=== PATIENT | male | born 1985 | race Caucasian/White ===

== ENCOUNTER 2019-03-26 16:40 | Emergency (ER) | payer SELFPAY ==
[2019-03-26] MEDS ORDERED: Sodium Chloride 0.9% 1,000 ML IV ONE (17:41)
[2019-03-26] MEDS ORDERED: Sodium Chloride 0.9% 10 ML Syringe FLUSH PRN (17:41)
--- NOTE | 2019-03-26 18:32 | EDM.PDOCBH ---
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 Patient last shot up at 1400 hrs. today. Again he's been doing that for the past 4 years and has lost approximately 60 pounds in total. He has never withdrawn from methamphetamines or heroin. Nor has the patient ever undergone treatment for heroin or methamphetamine abuse. He denies any other recreational drugs. Denies any alcohol use. He states for the past year and a half with ambulation he does get short of breath at times and notes no chest pain with this. Denies any fever, cough, hemoptysis, nausea vomiting, abdominal pain, pain or swelling to his lower extremities, or history of DVT/PE. States he just recently returned from [place] visiting his family which prompted treatment. - Related Data Allergies Allergy/AdvReac Type Severity Reaction Status Date / Time codeine Allergy Rash Verified 03/26/19 17:13 Home Meds: Home Meds . [No Known Home Meds] 03/26/19 [History] Past Medical History - Past Health History Medical/Surgical History: Denies Medical/Surgical History Social & Family History - Tobacco Use Smoking Status *Q: Current Every Day Smoker Years of Tobacco use: 15 Packs/Tins Daily: 0.5 - Recreational Drug Use Recreational Drug Use: Yes Drug Use in Last 12 Months: Yes Recreational Drug Type: Reports: Heroin, Methamphetamine Recreational Drug Use Frequency: Daily ED ROS GENERAL - Review of Systems Review Of Systems: See Below Constitutional: Reports: Decreased Appetite, Weight Loss Respiratory: Reports: Shortness of Breath. Denies: Pleuritic Chest Pain, Cough , Sputum, Hemoptysis Cardiovascular: Reports: Dyspnea on Exertion. Denies: Orthopnea, Palpitations, PND, Syncope GI/Abdominal: Reports: No Symptoms : Reports: No Symptoms Musculoskeletal: Reports: No Symptoms Skin: Reports: No Symptoms Neurological: Denies: Dizziness ED EXAM, BEHAVIORAL HEALTH - Physical Exam Exam: See Below Exam Limited By: Intoxication General Appearance: Alert, WD/WN, Anxious Eye Exam: Bilateral Eye: PERRL Ears: Hearing Grossly Normal Nose: Normal Inspection Throat/Mouth: Normal Voice, No Airway Compromise Head: Atraumatic, Normocephalic Neck: Normal Inspection, Supple Respiratory/Chest: No Respiratory Distress, Lungs Clear, Normal Breath Sounds, No Accessory Muscle Use, Chest Non-Tender Cardiovascular: Normal Peripheral Pulses, Tachycardia GI/Abdominal: Normal Bowel Sounds, Soft, Non-Tender, No Organomegaly, No Distention Back Exam: Normal Inspection Extremities: Normal Inspection, Normal Range of Motion, Non-Tender, No Pedal Edema Neurological: Alert, Normal Mood/Affect, CN II-XII Intact, Normal Cognition, No Motor/Sensory Deficits, Oriented x 3 Psychiatric: Alert, Normal Cognition, Oriented, Other (anxious). No: Uncooperative, Withdrawn, Flight of Ideas, Homicidal Thoughts, Phobic, Congregational Delusions, Suicidal Plan, Suicidal Thoughts, Auditory Hallucinations, Visual Hallucinations, Grandiose Thoughts, Pressured Speech, Paranoid Thoughts, Threatening Behavior Skin Exam: Warm, Dry, Intact, Normal color COURSE, BEHAVIORAL HEALTH COMP - Course Vital Signs: Last Vital Signs Temp 98.6 F 03/26/19 17:11 Pulse 125 H 03/26/19 17:11 Resp 16 03/26/19 17:11 BP 150/96 H 03/26/19 17:11 Pulse Ox 96 03/26/19 17:11 Orders, Labs, Meds: Active Orders 24 hr Category Date Time Status EKG 12 Lead [EKG Documentation Completion] [RC] STAT Care 03/26/19 19:23 Active Peripheral IV Care [RC] . DIRECTED Care 03/26/19 17:41 Active CXR [Chest 1V Frontal] [CR] Stat Exams 03/26/19 17:42 Taken Sodium Chloride 0.9% [Saline Flush] Med 03/26/19 17:41 Active 10 ml FLUSH ASDIRECTED PRN Peripheral IV Insertion Adult [OM.PC] Routine Oth 03/26/19 17:41 Ordered Medication Orders Sodium Chloride (Saline Flush) 10 ml FLUSH ASDIRECTED PRN PRN Reason: Keep Vein Open Last Admin: 03/26/19 18:09 Dose: 10 ml Laboratory Tests 03/26/19 03/26/19 03/26/19 Range/Units 17:30 17:30 18:08 WBC 8.70 (4.23-9.07) K/mm3 RBC 4.97 (4.63-6.08) M/mm3 Hgb 15.1 (13.7-17.5) gm/L Hct 42.9 (40.1-51.0) % MCV 86.3 (79.0-92.2) fl MCH 30.4 (25.7-32.2) pg MCHC 35.2 (32.2-35.5) g/dl RDW Std Deviation 41.4 (35.1-43.9) fL Plt Count 293 (163-337) K/mm3 MPV 9.2 L (9.4-12.3) fl Neutrophils % (Manual) 73 H (40-60) % Band Neutrophils % 0 (0-10) % Lymphocytes % (Manual) 23 (20-40) % Atypical Lymphs % 0 % Monocytes % (Manual) 3 (2-10) % Eosinophils % (Manual) 0 L (0.8-7.0) % Basophils % (Manual) 1 (0.2-1.2) Platelet Estimate Adequate Plt Morphology Comment Normal RBC Morph Comment Normal PT (9.7-12.0) SECONDS INR APTT (22-31) SECONDS D-Dimer, Quantitative (0.19-0.50) mg/L Sodium (136-145) mEq/L Potassium (3.5-5.1) mEq/L Chloride (98-107) mEq/L Carbon Dioxide (21-32) mEq/L Anion Gap (5-15) BUN (7-18) mg/dL Creatinine (0.7-1.3) mg/dL Est Cr Clr Drug Dosing mL/min Estimated GFR (MDRD) (>60) mL/min BUN/Creatinine Ratio (14-18) Glucose (74-106) mg/dL Calcium (8.5-10.1) mg/dL Total Bilirubin (0.2-1.0) mg/dL AST (15-37) U/L ALT (16-63) U/L Alkaline Phosphatase (46-116) U/L Troponin I (0.00-0.056) ng/mL Total Protein (6.4-8.2) g/dl Albumin (3.4-5.0) g/dl Globulin gm/dL Albumin/Globulin Ratio (1-2) TSH 3rd Generation (0.358-3.74) uIU/mL Urine Color Yellow (Yellow) Urine Appearance Clear (Clear) Urine pH 6.0 (5.0-8.0) Ur Specific Dagmar > or = 1.030 (1.005-1.030) Urine Protein Negative (Negative) Urine Glucose (UA) Negative (Negative) Urine Ketones Negative (Negative) Urine Occult Blood Negative (Negative) Urine Nitrite Negative (Negative) Urine Bilirubin Negative (Negative) Urine Urobilinogen 1.0 (0.2-1.0) Ur Leukocyte Esterase Negative (Negative) Urine RBC Not seen (0-5) /hpf Urine WBC Not seen (0-5) /hpf Ur Squamous Epith Cells 0-5 (0-5) /hpf Urine Bacteria Not seen (FEW) /hpf Urine Mucus Moderate H (FEW) /hpf Salicylates (2.8-20) mg/dL Urine Opiates Screen Negative (HGCLRX=968) Ur Buprenorphine Scrn Negative (CUTOFF=10) Ur Oxycodone Screen Negative (OLJ7RN=317) Urine Methadone Screen Negative (RYL8TI=261) Ur Propoxyphene Screen Negative (UYMAJB=299) Acetaminophen (10-30) ug/mL Ur Barbiturates Screen Negative (HTGMYT=444) Ur Tricyclics Screen Negative (JBGREB=287) Ur Phencyclidine Scrn Negative (CUTOFF=25) Ur Amphetamine Screen Presumptive positive H (MYKOTW=308) U Methamphetamines Scrn Presumptive positive H (DOYSEU=172) U Benzodiazepines Scrn Negative (OIIFZL=108) U Cocaine Metab Screen Negative (OODPYI=997) U Marijuana (THC) Screen Negative (CUTOFF=50) Ethyl Alcohol (0.00) gm% 03/26/19 03/26/19 03/26/19 Range/Units 18:08 18:08 18:08 WBC (4.23-9.07) K/mm3 RBC (4.63-6.08) M/mm3 Hgb (13.7-17.5) gm/L Hct (40.1-51.0) % MCV (79.0-92.2) fl MCH (25.7-32.2) pg MCHC (32.2-35.5) g/dl RDW Std Deviation (35.1-43.9) fL Plt Count (163-337) K/mm3 MPV (9.4-12.3) fl Neutrophils % (Manual) (40-60) % Band Neutrophils % (0-10) % Lymphocytes % (Manual) (20-40) % Atypical Lymphs % % Monocytes % (Manual) (2-10) % Eosinophils % (Manual) (0.8-7.0) % Basophils % (Manual) (0.2-1.2) Platelet Estimate Plt Morphology Comment RBC Morph Comment PT (9.7-12.0) SECONDS INR APTT (22-31) SECONDS D-Dimer, Quantitative (0.19-0.50) mg/L Sodium 143 (136-145) mEq/L Potassium 3.8 (3.5-5.1) mEq/L Chloride 104 (98-107) mEq/L Carbon Dioxide 27 (21-32) mEq/L Anion Gap 15.8 H (5-15) BUN 27 H (7-18) mg/dL Creatinine 1.2 (0.7-1.3) mg/dL Est Cr Clr Drug Dosing 68.91 mL/min Estimated GFR (MDRD) > 60 (>60) mL/min BUN/Creatinine Ratio 22.5 H (14-18) Glucose 128 H (74-106) mg/dL Calcium 9.1 (8.5-10.1) mg/dL Total Bilirubin 0.5 (0.2-1.0) mg/dL AST 17 (15-37) U/L ALT 21 (16-63) U/L Alkaline Phosphatase 65 (46-116) U/L Troponin I < 0.017 (0.00-0.056) ng/mL Total Protein 7.4 (6.4-8.2) g/dl Albumin 3.9 (3.4-5.0) g/dl Globulin 3.5 gm/dL Albumin/Globulin Ratio 1.1 (1-2) TSH 3rd Generation 0.840 (0.358-3.74) uIU/mL Urine Color (Yellow) Urine Appearance (Clear) Urine pH (5.0-8.0) Ur Specific Dagmar (1.005-1.030) Urine Protein (Negative) Urine Glucose (UA) (Negative) Urine Ketones (Negative) Urine Occult Blood (Negative) Urine Nitrite (Negative) Urine Bilirubin (Negative) Urine Urobilinogen (0.2-1.0) Ur Leukocyte Esterase (Negative) Urine RBC (0-5) /hpf Urine WBC (0-5) /hpf Ur Squamous Epith Cells (0-5) /hpf Urine Bacteria (FEW) /hpf Urine Mucus (FEW) /hpf Salicylates 0.8 L (2.8-20) mg/dL Urine Opiates Screen (WOGRBM=800) Ur Buprenorphine Scrn (CUTOFF=10) Ur Oxycodone Screen (YBZ6WI=382) Urine Methadone Screen (UEI4LZ=667) Ur Propoxyphene Screen (EUBXXT=535) Acetaminophen 0 L (10-30) ug/mL Ur Barbiturates Screen (KYILGQ=151) Ur Tricyclics Screen (GPNHMO=318) Ur Phencyclidine Scrn (CUTOFF=25) Ur Amphetamine Screen (KXRTTR=835) U Methamphetamines Scrn (MFRMCG=512) U Benzodiazepines Scrn (RIVKYQ=673) U Cocaine Metab Screen (PARFFZ=818) U Marijuana (THC) Screen (CUTOFF=50) Ethyl Alcohol 0.00 (0.00) gm% 03/26/19 03/26/19 Range/Units 18:08 18:08 WBC (4.23-9.07) K/mm3 RBC (4.63-6.08) M/mm3 Hgb (13.7-17.5) gm/L Hct (40.1-51.0) % MCV (79.0-92.2) fl MCH (25.7-32.2) pg MCHC (32.2-35.5) g/dl RDW Std Deviation (35.1-43.9) fL Plt Count (163-337) K/mm3 MPV (9.4-12.3) fl Neutrophils % (Manual) (40-60) % Band Neutrophils % (0-10) % Lymphocytes % (Manual) (20-40) % Atypical Lymphs % % Monocytes % (Manual) (2-10) % Eosinophils % (Manual) (0.8-7.0) % Basophils % (Manual) (0.2-1.2) Platelet Estimate Plt Morphology Comment RBC Morph Comment PT 10.0 (9.7-12.0) SECONDS INR < 0.93 APTT 28 (22-31) SECONDS D-Dimer, Quantitative < 0.19 L (0.19-0.50) mg/L Sodium (136-145) mEq/L Potassium (3.5-5.1) mEq/L Chloride (98-107) mEq/L Carbon Dioxide (21-32) mEq/L Anion Gap (5-15) BUN (7-18) mg/dL Creatinine (0.7-1.3) mg/dL Est Cr Clr Drug Dosing mL/min Estimated GFR (MDRD) (>60) mL/min BUN/Creatinine Ratio (14-18) Glucose (74-106) mg/dL Calcium (8.5-10.1) mg/dL Total Bilirubin (0.2-1.0) mg/dL AST (15-37) U/L ALT (16-63) U/L Alkaline Phosphatase (46-116) U/L Troponin I (0.00-0.056) ng/mL Total Protein (6.4-8.2) g/dl Albumin (3.4-5.0) g/dl Globulin gm/dL Albumin/Globulin Ratio (1-2) TSH 3rd Generation (0.358-3.74) uIU/mL Urine Color (Yellow) Urine Appearance (Clear) Urine pH (5.0-8.0) Ur Specific Dagmar (1.005-1.030) Urine Protein (Negative) Urine Glucose (UA) (Negative) Urine Ketones (Negative) Urine Occult Blood (Negative) Urine Nitrite (Negative) Urine Bilirubin (Negative) Urine Urobilinogen (0.2-1.0) Ur Leukocyte Esterase (Negative) Urine RBC (0-5) /hpf Urine WBC (0-5) /hpf Ur Squamous Epith Cells (0-5) /hpf Urine Bacteria (FEW) /hpf Urine Mucus (FEW) /hpf Salicylates (2.8-20) mg/dL Urine Opiates Screen (GUYSKS=743) Ur Buprenorphine Scrn (CUTOFF=10) Ur Oxycodone Screen (ZLW7JS=542) Urine Methadone Screen (LDL6TA=643) Ur Propoxyphene Screen (PMNIIZ=505) Acetaminophen (10-30) ug/mL Ur Barbiturates Screen (JVIQUA=983) Ur Tricyclics Screen (FEQZQJ=928) Ur Phencyclidine Scrn (CUTOFF=25) Ur Amphetamine Screen (JMPKDU=379) U Methamphetamines Scrn (UJLCLZ=349) U Benzodiazepines Scrn (QOZPAD=374) U Cocaine Metab Screen (QVUGGS=343) U Marijuana (THC) Screen (CUTOFF=50) Ethyl Alcohol (0.00) gm% Medications Generic Name Dose Route Start Last Admin Trade Name Freq PRN Reason Stop Dose Admin Sodium Chloride 10 ml 03/26/19 17:41 03/26/19 18:09 Saline Flush FLUSH 10 ml ASDIRECTED PRN Administration Keep Vein Open Discontinued Medications Generic Name Dose Route Start Last Admin Trade Name Freq PRN Reason Stop Dose Admin Sodium Chloride 1,000 mls @ 999 mls/hr 03/26/19 17:41 03/26/19 18:09 Normal Saline IV 03/26/19 18:41 999 mls/hr ONETIME ONE Administration Re-Assessment/Re-Exam: Vital signs blood pressure 150/96 with a heart rate 125. Respiratory rate 16. Temperature afebrile. O2 sats 96% on room air. IV established with NS 1 liter bolus. Initial labs and studies will include: CBC, chem 14, urine drug screen, serum EtOH, coag studies, salicylate level, troponin, TSH, UA, chest x-ray one view, and tylenol level in preparation for placement. I have spoken with [facility] recommends patient come to intake tomorrow morning for treatment. I have held off on ordering DDimer. With further discussion with patient he denies SOB or CP. He has no findings concerning for DVT. He states the episodes in which he has sob is associated with panic attacks with taking the methamphetamines/heroin. HR has trended downward suggesting he may have been volume depleted and/or anxious with coming in for evaluation. He had just shot up with meth/heroin a few hrs prior to arrival today as well which is contributing to the tachycardia. EKG has been ordered but not obtained yet. 1919 Reassessment, blood pressure 124/94 with a heart rate of 108. Patient states he is feeling much better after the IV fluids. Patient states with walking here in the ED he is not having any shortness of breath or chest pain. He suspects the shortness of breath prior to admission is associated with anxiety secondary to the drug use. I have spoken with [facility] [employer]. Recommended patient show up at 0800 hrs tomorrow morning for intake. They will arrange treatment for him. Patient agrees with plan. He has a friend with him who is providing transport. EKG is pending. EKG: ST 108 S1, Q3, T3 present. DDimer has been ordered. D-dimer negative. Patient has no further questions or concerns and agrees with plan. Discharge instructions as documented. Departure - Departure Time of Disposition: 19:12 Disposition: Home, Self-Care 01 Condition: Fair Clinical Impression: Drug abuse, Drug dependence - Discharge Information Instructions: Chemical Dependency, Substance Use Disorder and Mental Illness [facility]errals: [facility] [Outside] Additional Instructions: Go to [facility] tomorrow morning at 0800 for evaluation. Push the fluids. Refrain from IV meth or heroin use. Return to the ED if you develop any new or worsening symptoms. - My Orders Last 24 Hours: My Active Orders 03/26/19 17:41 Peripheral IV Care [RC] . DIRECTED Sodium Chloride 0.9% [Saline Flush] 10 ml FLUSH ASDIRECTED PRN Peripheral IV Insertion Adult [OM.PC] Routine 03/26/19 17:42 CXR [Chest 1V Frontal] [CR] Stat 03/26/19 19:23 EKG 12 Lead [EKG Documentation Completion] [RC] STAT - Assessment/Plan Last 24 Hours: My Active Orders 03/26/19 17:41 Peripheral IV Care [RC] . DIRECTED Sodium Chloride 0.9% [Saline Flush] 10 ml FLUSH ASDIRECTED PRN Peripheral IV Insertion Adult [OM.PC] Routine 03/26/19 17:42 CXR [Chest 1V Frontal] [CR] Stat 03/26/19 19:23 EKG 12 Lead [EKG Documentation Completion] [RC] STAT
[2019-03-26 18:49] LABS: ACETAMINOPHEN 0 ug/mL (10-30)
--- NOTE | 2019-03-27 08:16 | CR ---
Chest: Portable view of the chest was obtained. Comparison: No previous chest x-ray. Heart size and mediastinum are normal. Lungs are clear. Bony structures are grossly intact. Impression: 1. Nothing acute is seen on portable chest x-ray. Diagnostic code #1
== END 2019-03-26 20:42 | disposition home or self-care (01) ==
LOC: JD.ED 16:40
DX: F15.20 Other stimulant dependence, uncomplicated (principal); F17.210 Nicotine dependence, cigarettes, uncomplicated; Z88.5 Allergy status to narcotic agent
CPT/HCPCS: 36415; 71045; 80053; 80306; 81001; 84443; 84484; 85007; 85027; 85379; 85610; 85730; 93005; 96360; 99284; G0480; J7040; 93010; 99283